=== PATIENT | female | born 1995 | race Caucasian/White ===

== ENCOUNTER 2020-02-21 12:44 | Outpatient (CLI) | payer OTHER, SELFPAY ==
[2020-02-21 12:55] LABS: Basophils Absolute Auto 0.03 K/mm3 (0.00-0.10); Basophils Percent Auto 0.6 % (0.0-1.0); Eosinophils Absolute Auto 0.04 K/mm3 (0.02-0.50); Eosinophils Percent Auto 0.7 % (1.0-6.0); Hematocrit 39.9 % (35.0-49.0); Hemoglobin 13.9 g/dL (12.0-15.0); Immature Granulocyte Absolute 0.01 K/mm3 (0.00-0.00); Immature Granulocyte Percent A 0.2 % (0.0-0.0); Lymphocytes Absolute Auto 1.71 K/mm3 (1.10-4.50); Mean Corpuscular HGB Conc 34.8 g/dL (32.0-36.0); Mean Corpuscular Volume 83.1 fL (78.0-102.0); Mean Platelet Volume 11.1 fl (9.2-11.8); Monocytes Absolute Auto 0.46 K/mm3 (0.10-0.90); Monocytes Percent Auto 8.6 % (2.0-11.0); Neutrophils Absolute Auto 3.1 K/mm3 (1.7-7.2); Neutrophils Percent Auto 57.9 % (50.0-70.0); Platelet Count Result 210 K/mm3 (150-420); Red Cell Distribution Width 13.1 % (11.6-14.4); White Blood Count 5.3 K/mm3 (4.8-10.8)
[2020-02-21 13:29] LABS: Alanine Aminotransferase 19 U/L (14-59); Albumin Level 4.1 g/dL (3.4-5.0); Alkaline Phosphatase 87 U/L (46-116); Anion Gap 9 mmol/L (8-16); Aspartate Amino Transferase 18 U/L (15-37); Bilirubin,Total 0.5 mg/dL (0.00-1.00); Blood Urea Nitrogen 4 mg/dL (7-18); Calcium 9.3 mg/dL (8.5-10.1); Carbon Dioxide 32 mmol/L (21-32); Chloride 99 mmol/L (98-108); Estimated Glomerular Filt Rate > 60; Glucose 89 mg/dL (70-99); Osmolality Calculated 285 mOsm/kg (285-295); Potassium 3.1 mmol/L (3.5-5.1); Sodium 140 mmol/L (136-145); Total Protein 7.3 g/dL (6.4-8.2)
== END 2020-02-21 12:45 | disposition home or self-care (01) ==
LOC: CHSLAB 12:46
PROVIDERS: PCP Nurse Practitioner Family; Visit Provider Nurse Practitioner Family
DX: R59.0 Localized enlarged lymph nodes (principal)
CPT/HCPCS: 36415; 80053; 85025

== ENCOUNTER 2020-11-29 12:33 | Outpatient (CLI) | payer OTHER, SELFPAY ==
--- NOTE | ~2020-11-29 | US_ITS ---
EXAMINATION: US OB <= 14 weeks fetus DATE: 11/29/2020 13:13 INDICATION: First trimester dating and viability assessment TECHNIQUE: Real-time pelvic transabdominal and transvaginal ultrasound was performed. COMPARISON: None. FINDINGS: The uterus measures 12.1 x 6.9 x 8.1 cm. There is an intrauterine gestational sac. h eart motion is identified measuring 165 beats per minute (bpm) by M-mode Doppler. The crown rum p length measures 5.2 cm , which correlates with an estimated gestational age of 11 weeks and 6 day(s ) (+/-) 7 day(s). The ovaries are not visualized however no adnexal abnormality is seen. There is no free fluid in the pelvis. IMPRESSION: 1. Live intrauterine with an estimated gestational age of 11 weeks and 6 day(s) (+/-) 7 day (s) and an estimated delivery date of 06/14/2021. Reviewed, dictated and finalized at location A. IMPRESSION: 1. Live intrauterine with an estimated gestational age of 11 weeks an d 6 day(s) (+/-) 7 day(s) and an estimated delivery date of 06/14/2021.
== END 2020-11-29 12:34 | disposition home or self-care (01) ==
PROVIDERS: PCP Nurse Practitioner Family; Visit Provider Student in an Organized Health Care Education/Training Program
DX: Z34.91 Encounter for supervision of normal pregnancy, unspecified, first trimester (principal); Z3A.11 11 weeks gestation of pregnancy
CPT/HCPCS: 76801

== ENCOUNTER 2020-11-30 12:09 | Outpatient (CLI) | payer OTHER, SELFPAY ==
[2020-11-30 12:41] LABS: Basophils Percent Auto 0.3 % (0.2-1.2); Eosinophils Percent Auto 0.2 % (0-4.4); Hematocrit 37.3 % (37.0-47.0); Hemoglobin 12.7 g/dL (12.0-15.0); Immature Granulocyte Absolute 0.04 K/mm3 (0.00-0.031); Immature Granulocyte Percent A 0.4 % (0-0.5); Lymphocytes Absolute Auto 1.75 K/mm3 (0.9-3.2); Lymphocytes Percent Auto 15.3 % (18.3-44.2); Mean Corpuscular Hemoglobin 29.6 pg (26-34); Mean Corpuscular Volume 86.9 fl (80-100); Mean Platelet Volume 10.6 fl (7.4-10.4); Monocytes Absolute Auto 0.7 K/mm3 (0.1-0.6); Monocytes Percent Auto 6.1 % (2.6-8.5); Neutrophils Absolute Auto 8.9 K/mm3 (1.3-6.7); Neutrophils Percent Auto 77.7 % (45.5-73.1); Platelet Count Result 206 k/mm3 (150-375); Red Blood Count 4.29 M/mm3 (4.2-5.4); Red Cell Distribution Width 13.2 % (11.5-14.5); White Blood Count 11.4 K/mm3 (4.5-10.0)
[2020-11-30 12:44] LABS: Add Urine Microscopic? NO; Appearance Urine Clear (Clear); Bilirubin Urine Negative (Negative); Blood Urine Negative (Negative); Color Urine Yellow (Yellow); Glucose Urine UA Negative (Negative); Ketones Urine Negative (Negative); Leukocyte Esterase Ur Negative LEU/UL (NEGATIVE); Nitrate Urine Negative (Negative); Protein Urine Negative (Negative); Urobilinogen Urine Negative mg/dL (<2.0)
[2020-11-30 13:32] LABS: HIV 1/2 Ab P24 Ag Result Negative (Negative)
[2020-11-30 14:03] LABS: Vitamin D 25 Hydroxy 28.1 ng/mL
[2020-11-30 14:29] LABS: Hepatitis B Surface Antigen Negative (Negative); Rubella IgG Antibody 9.5 IU/ML
[2020-11-30 14:34] LABS: Hepatitis C Virus Antibody Negative (Negative)
[2020-12-03 08:05] LABS: Rapid Plasma Reagin Non-Reactive (NonReactive)
[2020-12-04 11:01] LABS: Varicella IgG Antibody >4000.00 Index (>=165.00)
[2020-12-06 15:26] LABS: Hematocrit 37.8 % (35.0-45.0); Hemoglobin 12.6 g/dL (11.7-15.5); MCH 30.5 pg (27.0-33.0); MCV 91.4 fL (80.0-100.0); RDW 14.9 % (11.0-15.0); Red Blood Cell Count 4.13 Mill/uL (3.80-5.10)
== END 2020-11-30 12:10 | disposition home or self-care (01) ==
LOC: ANHLAB 12:12
PROVIDERS: PCP Nurse Practitioner Family; Visit Provider Student in an Organized Health Care Education/Training Program
DX: Z34.92 Encounter for supervision of normal pregnancy, unspecified, second trimester (principal); Z3A.15 15 weeks gestation of pregnancy
CPT/HCPCS: 36415; 81003; 82306; 83021; 84443; 85025; 86592; 86703; 86762; 86787; 86803; 86850; 86900; 86901; 87086; 87088; 87340; G0432

== ENCOUNTER 2020-12-18 15:32 | Emergency (ER) | payer OTHER, SELFPAY ==
[2020-12-18 15:50] VITALS: BP 119/81; PULSE 91; RESP 15; TEMP 36.7; O2SAT 100
[2020-12-18 16:22] LABS: Add Urine Microscopic? NO; Appearance Urine Clear (Clear); Basophils Absolute Auto 0.04 K/mm3 (0.00-0.10); Basophils Percent Auto 0.4 % (0.0-1.0); Bilirubin Urine Negative (Negative); Blood Urine Negative (Negative); Color Urine Light Yellow (Yellow); Eosinophils Absolute Auto 0.06 K/mm3 (0.02-0.50); Eosinophils Percent Auto 0.6 % (1.0-6.0); Glucose Urine UA Negative (Negative); Hemoglobin 11.6 g/dL (12.0-15.0); Immature Granulocyte Absolute 0.04 K/mm3 (0.00-0.00); Immature Granulocyte Percent A 0.4 % (0.0-0.0); Ketones Urine Negative (Negative); Leukocyte Esterase Ur Negative (Negative); Lymphocytes Absolute Auto 2.29 K/mm3 (1.10-4.50); Lymphocytes Percent Auto 21.3 % (18.0-42.0); Mean Corpuscular HGB Conc 35.2 g/dL (32.0-36.0); Mean Corpuscular Hemoglobin 30.4 pg (27.0-31.0); Mean Corpuscular Volume 86.4 fL (78.0-102.0); Mean Platelet Volume 10.1 fl (9.2-11.8); Monocytes Percent Auto 8.4 % (2.0-11.0); Neutrophils Absolute Auto 7.4 K/mm3 (1.7-7.2); Neutrophils Percent Auto 68.9 % (50.0-70.0); Nitrate Urine Negative (Negative); Platelet Count Result 215 K/mm3 (150-420); Protein Urine Negative (Negative); Red Blood Count 3.82 M/mm3 (4.20-5.40); Red Cell Distribution Width 13.2 % (11.6-14.4); Urobilinogen Urine 0.2 mg/dL (0.2-1.0); White Blood Count 10.8 K/mm3 (4.8-10.8)
--- NOTE | 2020-12-18 16:46 | PC.NURSE ---
DR SHIRIN GOYAL CALLED FOR CONSULT
[2020-12-18] MEDS: MORPHINE SULFATE (*CRX) 4 MG/ML INJ IM (16:50)
[2020-12-18 17:01] LABS: Alanine Aminotransferase 18 U/L (14-59); Albumin Level 3.2 g/dL (3.4-5.0); Alkaline Phosphatase 38 U/L (46-116); Anion Gap 11 mmol/L (8-16); Aspartate Amino Transferase 16 U/L (15-37); Bilirubin,Total 0.6 mg/dL (0.00-1.00); Blood Urea Nitrogen 6 mg/dL (7-18); Calcium 8.6 mg/dL (8.5-10.1); Carbon Dioxide 25 mmol/L (21-32); Chloride 104 mmol/L (98-108); Estimated Glomerular Filt Rate > 60; Glucose 78 mg/dL (70-99); Osmolality Calculated 286 mOsm/kg (285-295); Potassium 3.5 mmol/L (3.5-5.1); Sodium 140 mmol/L (136-145); Total Protein 6.8 g/dL (6.4-8.2)
--- NOTE | 2020-12-18 17:34 | PC.NURSE ---
[facility] CALLED BY DIRECTION OF ROVING CHANGER FOR SURGERY TO R/O APPENDICITIS
[2020-12-18 18:57] VITALS: BP 119/85; PULSE 79; O2SAT 98
--- NOTE | 2020-12-18 19:00 | ED.FEMALEGU ---
HPI - Female Genitourinary General Source: patient and family Mode of arrival: ambulatory Limitations: no limitations History of Present Illness MD elicited complaint: pelvic pain and other (sudden RLQ abdominal pain, pt is . no acute uterine contractions or vaginal bleeding) Onset (ago): hour(s) (2) Location of symptoms: pelvis Severity: moderate Severity scale (1-10): 7 Quality of pain: cramping and aching Consistency: progressively worsening Vaginal bleeding: none Exacerbating factors: none Relieving factors: none Associated symptoms: abdominal pain Patient : Yes Related Data : 0 Para: 1 Allergies Allergy/AdvReac Type Severity Reaction Status Date / Time amoxicillin Allergy Intermediate Other Verified 11/30/20 11:27 Review of Systems Review of Systems: All systems reviewed & are unremarkable except as noted in HPI and below PMFSH Past Medical History Medical History Chronic back pain (Unknown) Encounter for supervision of normal , unspecified, unspecified trimester KAJAL (generalized anxiety disorder) Surgical History Surgical History Eustachian tube disorder Hx of colonoscopy 05/2018. Normal Family History Family History Mother Depression Alcoholism Father Alcoholism Grandparent Alcoholism Skin cancer Lung cancer Thyroid disorder Social History Social History Smoking status: Never smoker Tobacco type: e-cigarettes/vaping Additional smoking assessment comments: Patient trying hard to cut back on vaping during . Alcohol intake: current Drinks per week: 2 Substance use: current Substance use type: marijuana Exam Const: General: alert Nutritional Appearance: well nourished Orientation/consciousness: patient oriented x3 Limitations: no limitations HENMT: Head: normal to inspection Ears: external ears normal and TM's normal bilaterally General nose exam: Normal external nose present and Normal nares present Mouth: Yes lip normal and Yes moist mucous membranes Teeth and gingiva: dentition normal Eyes: General: appearance normal, both eyes and all related structures Conjunctivae: conjunctivae normal Pupils: Equal, round and reactive pupils present EOM: EOMs intact bilaterally Neck: Neck: normal visual inspection and no lymphadenopathy Chest: Chest palpation & inspection: normal inspection of the chest Resp: Effort & Inspection: normal respiratory effort Auscultation: clear to auscultation bilaterally Cardio: Rate: regular rate Rhythm: regular rhythm GI: GI Palp: Yes Soft to palpation Percussion: Yes normal to percussion Auscultation: normal bowel sounds Other: mildly tender RLQ abdomen. Gravid uterus approx 12 weeks. no acute uterine contractions. : General: Yes no CVA tenderness Back/Spine/Pelvis: Back: no CVA tenderness Skin: Rashes: no rashes Neuro: General: patient oriented x3, moves all extremities, no focal motor deficits and CN's II-XI intact bilaterally Extrem: General: normal to inspection and no pedal edema Psych: Mental Status: mental status grossly normal Affect: normal affect Attitude: cooperative Thought content: Yes Normal thought content present Course Course Emergency Course: pt was stable in the ED, with less pain. pt will be transferred for surgical review and U/S---presently un-available here. Reevaluation(s) Reevaluation #1: Pt was stable and less painful. VSS. Date: 12/18/20 Time: 16:44 Vital Signs Vital signs: Vital Signs Temperature 36.7 C 12/18/20 15:50 Pulse Rate 91 12/18/20 15:50 Respiratory Rate 15 12/18/20 15:50 Blood Pressure 119/81 12/18/20 15:50 Pulse Oximetry 100 12/18/20 15:50 Temperature 36.7 C 12/18/20 15:50 Pulse Rat
== END 2020-12-18 19:05 | disposition short-term general hospital (02) ==
PROVIDERS: Emergency Provider Emergency Medicine; PCP Nurse Practitioner Family
DX: R10.9 Unspecified abdominal pain (principal); Z33.1 Pregnant state, incidental
CPT/HCPCS: 36415; 80053; 81003; 84702; 85025; 96372; 99283; 99285; J2270

== ENCOUNTER 2020-12-18 21:46 | Observation (INO) | payer OTHER, SELFPAY ==
--- NOTE | ~2020-12-18 | MR_ITS ---
EXAMINATION: MR abdomen wo con DATE: 12/19/2020 12:49 INDICATION: Abdominal pain. TECHNIQUE: Magnetic resonance imaging (MRI) of the abdomen was performed without intravenous contrast . Sequences included coronal T2-weighted FS FSE, coronal and axial FS FIESTA, axial T2-weighted FSE, coronal LAVA-flex, axial STIR FSE, axial DWI, axial dual-echo T1-weighted FSPGR, and axial LAVA. COMPARISON: CT abdomen 03/23/2018, lumbar spine MRI 06/17/17 FINDINGS: The maternal liver, gallbladder, spleen, pancreas, adrenal glands, and left kidney are normal. There is chronic mild hydronephrosis of right kidney upper pole. There are no dilated loops of bowel. The a ppendix is not visualized. The ovaries are normal. There is a in the uterus in vertex prese ntation. The placenta is anterior. There is a 4.1 cm uterine fibroid. There is physiologic fluid in the pelvis. IMPRESSION: 1. Appendix not visualized. 2. 4.1 cm uterine fibroid. 3. Chronic mild hydronephrosis of right kidney upper pole, stable from 06/17/17. Reviewed, dictated and finalized at location B.
--- NOTE | ~2020-12-18 | US_ITS ---
US_ABDRLQ_US 12/19/2020 08:16 Indication: Lower quadrant pain. Evaluate for appendicitis in . Procedure: High-resolution Limited ultrasound of the right lower abdomen Comparison: No prior studies for comparison. Findings: Normal heterogeneous soft tissues in the right lower abdomen without evidence for focal abn ormal mass or fluid collection. The appendix is not visualized. Peristalsis is identified by the sono grapher during the examination in the area of clinical concern. Intrauterine gestation is identified. Impression: 1: Normal limited ultrasound of the right lower abdomen. Appendix not visualized. Reviewed, dictated and finalized at location A. Impression: 1: Normal limited ultrasound of the right lower abdomen. Appendix not visualize d.
[2020-12-18 19:25] VITALS: TEMP 36.9
--- NOTE | 2020-12-18 19:25 | PC.NURSE ---
Pt was sent here from [facility]. Pt seen there today with right lower quadrant abdominal pain R/O appendicitis. Dr. Luna was consulted and accepted pt in transfer. Pt states she has had intermittent pain right lower quadrant since yesterday. Pain is described as sharp, achy and rated as a 6 on pain scale. Denies nausea, vomiting or diarrhea. Pt had labs done at [facility] prior to arrival. Pt states pain become more intense when she went home to feed animals prior to arriving here. Pt has tenderness right lower quadrant of abdomen with palpation. Pain in noted slightly on in right with palpation of left.
--- NOTE | 2020-12-18 20:05 | OBADM ---
This patient, Tamar Greer, admitted to the OB room OB Post [facility] for observation. Patient/family oriented to hospital policies and general routines including ID bracelet, bed and alarms, visiting hours, pain management, procedures, bathroom and other care routines, personal items, smoking policy, room service/diet, and visiting hours. Patient/Family are encouraged to report perceived risks to care and to ask questions if they do not understand what they are told or what they should do.
[2020-12-18 20:27] VITALS: BP 116/81; PULSE 68
[2020-12-18 21:00] VITALS: BMI 15.9
--- NOTE | 2020-12-18 21:10 | PC.NURSE ---
Dr. Luna on unit to see patient and orders received.
--- NOTE | 2020-12-18 21:59 | PM.IMHP ---
H&P: HPI History of Present Illness Date/Time: 12/18/20 20:59 Chief Complaint: Right lower quadrant abdominal pain during Narrative: this patient is a pleasant 25-year-old white female who is and approximately 15 weeks . She states that starting approximately 2 days ago on Thursday she began having some specific right lower quadrant pain that came and went but was occasionally sharp. Yesterday at work and also bothered her and then today at work she was crying several times because of it was sent home from work. Subsequently she presented to the emergency room at [facility] a after having her last meal about 2:00 p.m. today. Because of the right lower quadrant pain they were concerned about possible appendicitis. CBC urinalysis and CMP were fairly unremarkable. However, because patient could not undergo CT scan to rule out appendicitis they wanted to have her followed at a site where her OB was and I was called. Further history is the patient does vape but has been trying to cut back on this. She has never had previous abdominal surgery and at this time is hungry and not nauseated. Review of Systems Constitutional: Constitutional: Reports as per HPI and Denies headache(s) Eyes: Eyes: Denies loss of vision and Denies eye pain ENT: Reports Normal hearing present, Denies change in voice, Denies dizziness and Denies headache(s) Cardiovascular: Cardiovascular: Denies chest pain and Denies dyspnea Respiratory: Respiratory: Denies dyspnea and Denies wheezing Gastrointestinal: Gastrointestinal: Reports abdominal pain ( fluxes and flows with some sharp episodes mainly right lower quadrant.), Reports GI cramping, Denies excessive flatus and Denies nausea Genitourinary: Comments: approximately 15 weeks (had a ultrasound 2 weeks ago showing 13 weeks gestation) no recent vaginal bleeding or other changes. No recent dysuria did complain about a funny feeling in her abdomen each time she urinated over the last several days urinalysis in [facility] earlier today earlier today unremarkable. 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 She has seen a neurosurgeon about in the past. ( on the right) Psychiatric: Psychiatric: Denies memory loss and Denies panic attacks Endocrine: Endocrine: Reports no additional endocrine complaints Hematologic/Lymphatic: Hematologic/Lymphatic: Reports no additional hematologic/lymphatic complaints Allergic/Immunologic: Allergic/Immunologic: Denies wheezing PMFSH Past Medical History Medical History Chronic back pain Encounter for supervision of normal , unspecified, unspecified trimester KAJAL (generalized anxiety disorder) Surgical History Surgical History Eustachian tube disorder Hx of colonoscopy 05/2018. Normal Family History Family History Mother Depression Alcoholism Father Alcoholism Grandparent Alcoholism Skin cancer Lung cancer Thyroid disorder Social History Social History (Updated 12/18/20 @ 22:07 by Sheng Luna MD) Smoking status: Never smoker Tobacco type: e-cigarettes/vaping Additional smoking assessment comments: Patient trying hard to cut back on vaping during . Alcohol intake: current Drinks per week: 2 Substance use: current Substance use type: marijuana Meds Home Medications and Allergies Home Medications Medication Instructions Recorded Confirmed Type vits,calcium no.78-iro
[2020-12-18] MEDS: SODIUM CHLORIDE 0.9% IV 1,000 ML 100 ML IV CONT (22:22)
[2020-12-18 22:28] VITALS: TEMP 36.8
[2020-12-18 22:29] VITALS: BP 112/70; PULSE 63
[2020-12-18 22:31] VITALS: BP 109/68; PULSE 62
[2020-12-18] MEDS: MORPHINE SULFATE (*CRX) 2 MG/ML INJ IV PUSH (22:47)
[2020-12-19 01:51] VITALS: BP 123/67; PULSE 57
[2020-12-19 02:27] VITALS: TEMP 36.9
[2020-12-19 05:10] VITALS: BP 119/58; PULSE 61; TEMP 36.7
[2020-12-19 05:14] LABS: Basophils Absolute Auto 0.1 K/mm3 (0.0-0.1); Basophils Percent Auto 0.4 % (0.2-1.2); Eosinophils Absolute Auto 0.1 K/mm3 (0-0.3); Eosinophils Percent Auto 0.7 % (0-4.4); Hematocrit 33.9 % (37.0-47.0); Hemoglobin 11.7 g/dL (12.0-15.0); Immature Granulocyte Absolute 0.05 K/mm3 (0.00-0.031); Immature Granulocyte Percent A 0.4 % (0-0.5); Lymphocytes Absolute Auto 2.65 K/mm3 (0.9-3.2); Lymphocytes Percent Auto 23.3 % (18.3-44.2); Mean Corpuscular HGB Conc 34.5 g/dl (32-36); Mean Corpuscular Hemoglobin 30.3 pg (26-34); Mean Corpuscular Volume 87.8 fl (80-100); Mean Platelet Volume 10.2 fl (7.4-10.4); Monocytes Absolute Auto 0.9 K/mm3 (0.1-0.6); Monocytes Percent Auto 7.6 % (2.6-8.5); Neutrophils Absolute Auto 7.7 K/mm3 (1.3-6.7); Neutrophils Percent Auto 67.6 % (45.5-73.1); Platelet Count Result 201 k/mm3 (150-375); Red Blood Count 3.86 M/mm3 (4.2-5.4); Red Cell Distribution Width 13.3 % (11.5-14.5); White Blood Count 11.4 K/mm3 (4.5-10.0)
[2020-12-19 05:25] LABS: Magnesium 1.7 mg/dL (1.6-2.3)
[2020-12-19 05:28] LABS: CRP < 0.5 mg/dL (<1.0)
[2020-12-19 07:05] VITALS: RESP 18; TEMP 36.9
--- NOTE | 2020-12-19 07:05 | PC.NURSE ---
Dr Luna here to see patient. Plan of care discussed.
[2020-12-19 07:18] VITALS: BP 106/61; PULSE 57
--- NOTE | 2020-12-19 07:37 | WPDCN ---
Assessment and Plan Assessment and plan (1) Abdominal pain: Code(s): R10.9 - Unspecified abdominal pain Status: Acute (2) Intrauterine : Code(s): Z34.90 - Encounter for supervision of normal , unspecified, unspecified trimester Status: Acute Assessment and Plan: Will get daily doptones. Discussed with patient possible round ligament pain if appendicitis is ruled out. HPI Data of Consult Date/Time: 12/19/20 07:37 Requesting Physician: Sheng Luna MD Primary Care Provider: Hannah Malloy NP Consult Narrative Narrative: Tamar Greer is a 25 year old female Pt at 15 weeks presented to [place] ED with complaints of severe right lower quadrant pain. Doptones obtained in ED. No spotting. Denies nausea or vomiting or decrease appetite. ED physician evaluating patient concerned regarding possible appendicitis. General surgery admitted patient for evaluation for rule out appendicitis. Patients prior ultrasounds did not show any concerning adnexal mass. Patient sees Dr. Li. Will follow patient with Dr. Luna. [facility] Past Medical History Medical History Chronic back pain Encounter for supervision of normal , unspecified, unspecified trimester KAJAL (generalized anxiety disorder) Surgical History Surgical History Eustachian tube disorder Hx of colonoscopy 05/2018. Normal Family History Family History Mother Depression Alcoholism Father Alcoholism Grandparent Alcoholism Skin cancer Lung cancer Thyroid disorder Social History Social History (Updated 12/18/20 @ 22:07 by Sheng Luna MD) Smoking status: Never smoker Tobacco type: e-cigarettes/vaping Additional smoking assessment comments: Patient trying hard to cut back on vaping during . Alcohol intake: current Drinks per week: 2 Substance use: current Substance use type: marijuana Meds Home Medications and Allergies Home Medications Medication Instructions Recorded Confirmed Type vits,calcium no.78-iron 1 tablet PO DAILY #30 tablet 11/02/20 12/18/20 Rx fumarate-folic acid 29 mg-1 mg tablet Allergies Allergy/AdvReac Type Severity Reaction Status Date / Time amoxicillin Allergy Intermediate Other Verified 11/30/20 11:27 Vital Signs Vital Signs - 24 hr 12/18/20 19:25 12/18/20 20:27 12/18/20 22:28 Temperature 98.4 F 98.3 F Pulse Rate 68 Respiratory Rate Blood Pressure 116/81 12/18/20 22:29 12/18/20 22:31 12/19/20 01:51 Temperature Pulse Rate 63 62 57 L Respiratory Rate Blood Pressure 112/70 109/68 123/67 12/19/20 02:27 12/19/20 05:10 12/19/20 07:05 Temperature 98.4 F 98.1 F 98.5 F Pulse Rate 61 Respiratory Rate 18 Blood Pressure 119/58 L 12/19/20 07:18 Temperature Pulse Rate 57 L Respiratory Rate Blood Pressure 106/61 Exam Const: General: no acute distress Eyes: General: appearance normal, both eyes and all related structures Resp: Effort & Inspection: normal respiratory effort GI: Other: moderate tenderness on right, voluntary guarding no rebound Extrem: General: normal to inspection Other: nontender Psych: Appearance: grossly normal Results Labs CBC & Chem 7: 12/19/20 04:57 Labs: Short CBC 12/19/20 Range/Units 04:57 WBC 11.4 H (4.5-10.0) K/mm3 Hgb 11.7 L (12.0-15.0) g/dL Hct 33.9 L (37.0-47.0) % Plt Count 201 (150-375) k/mm3
--- NOTE | 2020-12-19 08:00 | PC.NURSE ---
Patient to US
--- NOTE | 2020-12-19 08:20 | P.PNOB_ITS ---
OB - PN: Subj Subjective Date/time seen: 12/19/20 08:20 She states pain unchanged. Mild nausea. No spotting. OB - PN: Obj Data Labs CBC & Chem 7: 12/19/20 04:57 Labs: Laboratory Results - last 24 hr 12/19/20 12/19/20 12/19/20 04:57 04:57 04:57 WBC 11.4 H RBC 3.86 L Hgb 11.7 L Hct 33.9 L MCV 87.8 MCH 30.3 MCHC 34.5 RDW 13.3 Plt Count 201 MPV 10.2 Immature Gran % (Auto) 0.4 Neut % (Auto) 67.6 Lymph % (Auto) 23.3 [place] % (Auto) 7.6 Eos % (Auto) 0.7 Baso % (Auto) 0.4 Lymph # (Auto) 2.65 [place] # (Auto) 0.9 H Eos # (Auto) 0.1 Baso # (Auto) 0.1 Abs Immat Gran (auto) 0.05 H Absolute Neuts (auto) 7.7 H Absolute Nucleated RBC 0.0 Nucleated RBC % 0.0 Magnesium 1.7 C-Reactive Protein < 0.5 OB - PN A/P Assessment and Plan (1) Abdominal pain: Code(s): R10.9 - Unspecified abdominal pain Status: Acute Assessment and Plan: Rule out appendicitis. Possible etiology round ligament pain if appy ruled out. (2) Intrauterine : Code(s): Z34.90 - Encounter for supervision of normal , unspecified, unspecified trimester Status: Acute Assessment and Plan: Continue daily doptones. Time Spent With Patient Time: Total time spent is greater than 50% in coordination of care (as doc umented) at patient's floor/unit and/or counseling patient: Exam Const: General: no acute distress and uncomfortable Eyes: General: appearance normal, both eyes and all related structures Resp: Effort & Inspection: normal respiratory effort : Other: fundus nontender approx 16 weeks mild voluntary guarding rlq Skin: General skin exam: normal color Extrem: General: normal to inspection Psych: Mental Status: mental status grossly normal
[2020-12-19] MEDS: ONDANSETRON INJ 4 MG/2 ML VIAL IV PUSH (08:51)
[2020-12-19] MEDS: SODIUM CHLORIDE 0.9% IV 1,000 ML 100 ML IV CONT (08:52)
--- NOTE | 2020-12-19 09:46 | PC.NURSE ---
US results reviewed and call placed to Dr Luna at office and message left.
[2020-12-19] MEDS: MORPHINE SULFATE (*CRX) 2 MG/ML INJ IV PUSH (14:24)
[2020-12-19 14:26] VITALS: BP 103/58; PULSE 64
--- NOTE | 2020-12-19 16:36 | PM.OBPNVD ---
OB - PN: Subj Subjective Date/time seen: 12/19/20 16:36 I talked to her regarding MRI results. Discussed findings of fibroid 4cm. It is located posterior uterus. It does not appear to be degenerating. Discussed with her that it can contribute to round ligament pain with the pulling more on that side. This is common in , not harmful to baby. Discussed with her that round ligament pain is common and can be present until mid 20s. I would recommend Tylenol , binder for abdominal support. From the OB perspective she can eat and I would be ok with her being discharged after making sure she is tolerating foods, if OK gen surg. OB - PN: Obj Data Labs CBC & Chem 7: 12/19/20 04:57 Labs: Laboratory Results - last 24 hr 12/19/20 12/19/20 12/19/20 04:57 04:57 04:57 WBC 11.4 H RBC 3.86 L Hgb 11.7 L Hct 33.9 L MCV 87.8 MCH 30.3 MCHC 34.5 RDW 13.3 Plt Count 201 MPV 10.2 Immature Gran % (Auto) 0.4 Neut % (Auto) 67.6 Lymph % (Auto) 23.3 [place] % (Auto) 7.6 Eos % (Auto) 0.7 Baso % (Auto) 0.4 Lymph # (Auto) 2.65 [place] # (Auto) 0.9 H Eos # (Auto) 0.1 Baso # (Auto) 0.1 Abs Immat Gran (auto) 0.05 H Absolute Neuts (auto) 7.7 H Absolute Nucleated RBC 0.0 Nucleated RBC % 0.0 Magnesium 1.7 C-Reactive Protein < 0.5 Imaging Radiologist's impression: Impressions Abdomen Ultrasound 12/19/20 09:21 Impression: 1: Normal limited ultrasound of the right lower abdomen. Appendix not visualized. Abdomen MRI 12/19/20 14:30 IMPRESSION: 1. Appendix not visualized. 2. 4.1 cm uterine fibroid. 3. Chronic mild hydronephrosis of right kidney upper pole, stable from 06/17/17. OB - PN A/P Time Spent With Patient Time: Total time spent is greater than 50% in coordination of care (as documented) at patient's floor/unit and/or counseling patient:
--- NOTE | 2020-12-19 17:33 | PC.NURSE ---
Dr Luna here to see patient. Plan discussed. Will have a soft diet and then patient may dc home.
--- NOTE | 2020-12-25 20:51 | PM.DS ---
DS: Admitting Diagnosis Admitting Diagnosis Abdominal pain DS: Discharge Diagnosis Discharge Diagnosis (1) Abdominal pain: Onset Date: ~12/18/20 Code(s): R10.9 - Unspecified abdominal pain Status: Acute Assessment and Plan: this was the main reason for the patient's observational admission. Concern the ER was for possible appendicitis and . Patient did have slightly elevated white count otherwise did not have a typical signs were appendicitis. She was still hungry. She did not a fever. However, because concerns she was it admitted for observation the day following admission she had both ultrasound which showed no appendix was swollen MR which showed signs of appendicitis. ( uterine fibroids seen posteriorly). (2) Intrauterine : Onset Date: Unknown Code(s): Z34.90 - Encounter for supervision of normal , unspecified, unspecified trimester Status: Acute Assessment and Plan: Approximately 15 weeks . Consultation was obtained Dr. Sevilla for Dr. Li regarding her OB status. (3) Uterine fibroid complicating care, baby not yet delivered in first trimester: Code(s): O34.11 - Maternal care for benign tumor of corpus uteri, first trimester; D25.9 - Leiomyoma of uterus, unspecified Status: Acute (4) KAJAL (generalized anxiety disorder): Code(s): F41.1 - Generalized anxiety disorder Status: Acute DS: Summary Hospital Course Reason for hospitalization: Abdominal pain in Hospital Course: patient was admitted from the [facility] ED after the if physician expressed concern about possible appendicitis. Please see history and physical for further details. Patient was observed overnight. On the morning following and ultrasound was obtained which showed no signs of a swollen appendage in the right lower quadrant IV appendicitis. I discussed with the radiologist another possible test and they confirmed that they were willing to do an MR without contrast for this problem. Subsequently the afternoon this returned also negative other than some finding of a posterior uterine fibroid, possibly increasing likelihood of round ligament pain in . (See Dr. Sevilla's note regarding this). . This is common in , not harmful to baby. Discussed with her that round ligament pain is common and can be present until mid 20s. I would recommend Tylenol , binder for abdominal support. From the OB perspective she can eat and I would be ok with her being discharged after making sure she is tolerating foods, if OK gen surg. Time Spent with Patient Time attestation: Total time spent providing and/or coordinating discharge services: 40 min Exam Const: General: cooperative, no acute distress, well developed, alert and awake Nutritional Appearance: well nourished Orientation/consciousness: patient oriented x3 Limitations: no limitations HENMT: Head: normal to inspection, normocephalic and atraumatic Ears: hearing grossly normal bilaterally General nose exam: Normal external nose present Face and sinus: normal facial exam Mouth: Yes Normal oral and palatal mucosa present, Yes tongue normal and Yes moist mucous membranes Eyes: General: appearance normal, both eyes and all related structures Pupils: Equal, round and reactive pupils present EOM: EOMs intact bilaterally Neck: Neck: normal visual inspection, no lymphadenopathy, trachea midline and supple Lymphatic: no lymphadenopathy noted Chest: Other: Not examined Resp: Effort & Inspection: normal respiratory effort and able to speak in complete sentences Auscultation: clear to auscultation bilaterally Cardio: Jugular venous distension: no JVD Rate: regular rate Rhythm: regular rhythm Heart sounds: no murmurs GI: Inspection: normal to inspection, no scars and other ( some lower abdominal blood bulge consistent with first-trimester ) GI Palp: Yes a
== END 2020-12-19 19:10 | disposition home or self-care (01) ==
PROVIDERS: Admitting Provider Surgery; PCP Nurse Practitioner Family; Visit Provider Surgery
DX: O26.891 Other specified pregnancy related conditions, first trimester (principal); R10.9 Unspecified abdominal pain; O34.11 Maternal care for benign tumor of corpus uteri, first trimester; D25.9 Leiomyoma of uterus, unspecified; O99.891 Other specified diseases and conditions complicating pregnancy; N13.39 Other hydronephrosis; O99.331 Smoking (tobacco) complicating pregnancy, first trimester; F17.290 Nicotine dependence, other tobacco product, uncomplicated; O99.321 Drug use complicating pregnancy, first trimester; F12.90 Cannabis use, unspecified, uncomplicated; Z3A.15 15 weeks gestation of pregnancy
CPT/HCPCS: 36415; 74181; 76705; 83735; 85025; 86140; 96361; 96374; 96375; G0378; G0379; J2270; J2405; J7030

== ENCOUNTER 2021-03-11 12:23 | Outpatient (CLI) | payer OTHER, SELFPAY ==
[2021-03-11 13:53] LABS: Glucose 1 Hour PP 50gm Dose 99 mg/dL (70-130)
[2021-03-11 13:59] LABS: Basophils Absolute Auto 0.05 K/mm3 (0.00-0.10); Basophils Percent Auto 0.5 % (0.0-1.0); Eosinophils Absolute Auto 0.06 K/mm3 (0.02-0.50); Eosinophils Percent Auto 0.5 % (1.0-6.0); Hematocrit 32.4 % (35.0-49.0); Hemoglobin 11.3 g/dL (12.0-15.0); Immature Granulocyte Absolute 0.08 K/mm3 (0.00-0.00); Immature Granulocyte Percent A 0.7 % (0.0-0.0); Lymphocytes Absolute Auto 1.96 K/mm3 (1.10-4.50); Lymphocytes Percent Auto 17.8 % (18.0-42.0); Mean Corpuscular HGB Conc 34.9 g/dL (32.0-36.0); Mean Corpuscular Volume 88.8 fL (78.0-102.0); Mean Platelet Volume 10.3 fl (9.2-11.8); Monocytes Absolute Auto 0.94 K/mm3 (0.10-0.90); Monocytes Percent Auto 8.5 % (2.0-11.0); Neutrophils Absolute Auto 7.9 K/mm3 (1.7-7.2); Platelet Count Result 212 K/mm3 (150-420); Red Blood Count 3.65 M/mm3 (4.20-5.40); Red Cell Distribution Width 12.8 % (11.6-14.4)
== END 2021-03-11 12:24 | disposition home or self-care (01) ==
LOC: CHSLAB 12:26
PROVIDERS: PCP Nurse Practitioner Family; Visit Provider Student in an Organized Health Care Education/Training Program
DX: Z34.02 Encounter for supervision of normal first pregnancy, second trimester (principal)
CPT/HCPCS: 36415; 82947; 85025

== ENCOUNTER 2021-04-18 10:24 | Outpatient (CLI) | payer OTHER, SELFPAY ==
[2021-04-18 10:39] LABS: Basophils Absolute Auto 0.1 K/mm3 (0.0-0.1); Basophils Percent Auto 0.5 % (0.2-1.2); Eosinophils Absolute Auto 0.1 K/mm3 (0-0.3); Eosinophils Percent Auto 0.6 % (0-4.4); Hematocrit 33.5 % (37.0-47.0); Hemoglobin 11.7 g/dL (12.0-15.0); Immature Granulocyte Absolute 0.13 K/mm3 (0.00-0.031); Immature Granulocyte Percent A 1.2 % (0-0.5); Lymphocytes Percent Auto 16.2 % (18.3-44.2); Mean Corpuscular HGB Conc 34.9 g/dl (32-36); Mean Corpuscular Hemoglobin 30.5 pg (26-34); Mean Corpuscular Volume 87.5 fl (80-100); Mean Platelet Volume 10.4 fl (7.4-10.4); Monocytes Absolute Auto 1.3 K/mm3 (0.1-0.6); Monocytes Percent Auto 11.3 % (2.6-8.5); Neutrophils Absolute Auto 7.8 K/mm3 (1.3-6.7); Neutrophils Percent Auto 70.2 % (45.5-73.1); Platelet Count Result 194 k/mm3 (150-375); Red Blood Count 3.83 M/mm3 (4.2-5.4); Red Cell Distribution Width 13.1 % (11.5-14.5); White Blood Count 11.1 K/mm3 (4.5-10.0)
[2021-04-18 11:29] LABS: HIV 1/2 Ab P24 Ag Result Negative (Negative)
[2021-04-18 11:55] LABS: Rapid Plasma Reagin Non-Reactive (NonReactive)
== END 2021-04-18 10:25 | disposition home or self-care (01) ==
PROVIDERS: PCP Nurse Practitioner Family; Visit Provider Student in an Organized Health Care Education/Training Program
DX: Z34.90 Encounter for supervision of normal pregnancy, unspecified, unspecified trimester (principal); Z3A.00 Weeks of gestation of pregnancy not specified
CPT/HCPCS: 36415; 85025; 86592; 86703; G0432

== ENCOUNTER 2021-05-20 15:55 | Inpatient (IN) | payer OTHER, SELFPAY ==
[2021-05-20 17:11] VITALS: BMI 21.1
--- NOTE | 2021-05-20 17:11 | LDADM ---
This patient, Tamar Greer, was admitted to Labor/Delivery/Recovery 109 on 05/20/21 at 15:55. Plans for labor, pain management and were discussed with patient. Patient/family oriented to hospital policies and general routines including ID bracelet, bed and alarms, visiting hours, pain management, procedures, bathroom and other care routines, personal items, smoking policy, room service/diet and guest tray routines, infant security routines, and visiting hours. Patient/Family are encouraged to report perceived risks to care and to ask questions if they do not understand what they are told or what they should do. See OBIX for further documentation.
[2021-05-20 17:19] VITALS: BP 109/73; PULSE 69
[2021-05-20] MEDS: DINOPROSTONE 10 MG VAG INSERT VAGINAL (17:36)
[2021-05-20 17:38] LABS: Basophils Absolute Auto 0.1 K/mm3 (0.0-0.1); Basophils Percent Auto 0.4 % (0.2-1.2); Eosinophils Absolute Auto 0.1 K/mm3 (0-0.3); Eosinophils Percent Auto 0.7 % (0-4.4); Hematocrit 34.8 % (37.0-47.0); Hemoglobin 11.9 g/dL (12.0-15.0); Immature Granulocyte Absolute 0.11 K/mm3 (0.00-0.031); Immature Granulocyte Percent A 0.9 % (0-0.5); Lymphocytes Percent Auto 17.2 % (18.3-44.2); Mean Corpuscular HGB Conc 34.2 g/dl (32-36); Mean Corpuscular Hemoglobin 29.8 pg (26-34); Mean Platelet Volume 11.5 fl (7.4-10.4); Monocytes Absolute Auto 1.2 K/mm3 (0.1-0.6); Monocytes Percent Auto 10.2 % (2.6-8.5); Neutrophils Absolute Auto 8.6 K/mm3 (1.3-6.7); Neutrophils Percent Auto 70.6 % (45.5-73.1); Platelet Count Result 209 k/mm3 (150-375); Red Cell Distribution Width 13.1 % (11.5-14.5); White Blood Count 12.2 K/mm3 (4.5-10.0)
--- NOTE | 2021-05-20 17:43 | WPDANESEPP ---
Anes - Eval Pre Procedure Procedure: labor epidural Date/Time: 05/20/21 17:43 Surgeon: paola Preop Diagnosis: pain during labor Pre Op Diagnosis: IOL Patient Data Age: 25 Gender: F Height: 1.65 m Weight: 57.6 kg Last Vital Signs Pulse 69 05/20/21 17:19 BP 109/73 05/20/21 17:19 Allergies Allergy/AdvReac Type Severity Reaction Status Date / Time benzocaine [From Dermoplast] Allergy Rash Verified 05/17/21 14:33 lanolin [From Dermoplast] Allergy Rash Verified 05/17/21 14:33 Home Medications Medication Instructions Recorded Confirmed Type vits,calcium no.78-iron 1 tablet PO DAILY #30 tablet 11/02/20 05/20/21 Rx fumarate-folic acid 29 mg-1 mg tablet Laboratory Tests 05/20/21 05/20/21 16:52 16:52 WBC 12.2 K/mm3 H K/mm3 (4.5-10.0) RBC 4.00 M/mm3 L M/mm3 (4.2-5.4) Hgb 11.9 g/dL L g/dL (12.0-15.0) Hct 34.8 % L % (37.0-47.0) MCV 87.0 fl fl (80-100) MCH 29.8 pg pg (26-34) MCHC 34.2 g/dl g/dl (32-36) RDW 13.1 % % (11.5-14.5) Plt Count 209 k/mm3 k/mm3 (150-375) MPV 11.5 fl H fl (7.4-10.4) Immature Gran % (Auto) 0.9 % H % (0-0.5) Neut % (Auto) 70.6 % % (45.5-73.1) Lymph % (Auto) 17.2 % L % (18.3-44.2) Oliver % (Auto) 10.2 % H % (2.6-8.5) Eos % (Auto) 0.7 % % (0-4.4) Baso % (Auto) 0.4 % % (0.2-1.2) Lymph # (Auto) 2.10 K/mm3 K/mm3 (0.9-3.2) Oliver # (Auto) 1.2 K/mm3 H K/mm3 (0.1-0.6) Eos # (Auto) 0.1 K/mm3 K/mm3 (0-0.3) Baso # (Auto) 0.1 K/mm3 K/mm3 (0.0-0.1) Abs Immat Gran (auto) 0.11 K/mm3 H K/mm3 (0.00-0.031) Absolute Neuts (auto) 8.6 K/mm3 H K/mm3 (1.3-6.7) Absolute Nucleated RBC 0.0 K/mm3 K/mm3 (0.0-0.012) Nucleated RBC % 0.0 % % (0.0-0.2) RPR Pending Patient hx anesthesia problems: none Family hx anesthesia problems: none Results Review: All pre-operative results and documents have been reviewed as part of the pre-operative evaluation. [facility] Past Medical History Medical History (Updated 05/20/21 @ 17:45 by Imelda Aguilera CRNA) Chronic back pain (Unknown) Encounter for supervision of normal , unspecified, unspecified trimester KAJAL (generalized anxiety disorder) History of uterine fibroid Tarlov cyst Surgical History Surgical History Eustachian tube disorder Hx of colonoscopy 05/2018. Normal Family History Family History Mother Depression Alcoholism Father Alcoholism Grandparent Alcoholism Skin cancer Lung cancer Thyroid disorder Social History Social History Smoking packs per day: 1 Smoking cigarettes per day: 20.0 Years smoked: 2 Smoking pack-years: 2.00 Smoking status: Former smoker Tobacco type: cigarettes Additional smoking assessment comments: Patient trying hard to cut back on vaping during . Alcohol intake: current Drinks per week: 2 Substance use: current Substance use type: marijuana Spiritual care concerns: No Exam Day of Procedure 05/20/21 17:43
[2021-05-20 18:44] VITALS: PULSE 66; O2SAT 95
[2021-05-20 18:48] VITALS: RESP 14; TEMP 36.9
[2021-05-20 20:23] VITALS: RESP 14; TEMP 36.2
[2021-05-20] MEDS: LACTATED RINGERS 1,000 ML 125 ML IV CONT (23:26)
[2021-05-21] VITALS (179 sets, daily range): BP systolic 91–149; BP diastolic 58–104; PULSE 53–165; RESP 16; TEMP 36.7–37.6; O2SAT 96–100
[2021-05-21] MEDS: fentaNYL CITRATE INJ (*CRX) 100 MCG/2 ML VIAL 50 MCG IV PUSH (00:19)
[2021-05-21] MEDS: LACTATED RINGERS 1,000 ML 125 ML IV CONT ×2 (00:53→10:00)
[2021-05-21] MEDS: OXYTOCIN 30 UNITS/NS 500 ML 30 UNITS/500 ML BAG 6 UNITS IV CONT (05:24)
[2021-05-21 07:28] LABS: Rapid Plasma Reagin Non-Reactive (NonReactive)
--- NOTE | 2021-05-21 09:02 | PM.IMHP ---
H&P: HPI History of Present Illness Date/Time: 05/21/21 09:02Patient is a 25-year-old LMP 09/01/2020 currently 37 weeks 3 days gestation with HOSSEIN 06/08/2021. Patient is dated by LMP consistent with ultrasound on 11/29/2020 at 11 weeks gestation. Patient presented to labor and delivery on the evening of 05/20/20 for induction of labor secondary to IUGR. Most recent growth scan on 05/13/20 showed EFW 3%. In general, patient reports feeling well. Reports occasional contractions. Denies vaginal bleeding or leakage of fluid. Reports good movement. Chief Complaint: IUP at 37w3d IUGR Review of Systems Review of Systems: All systems reviewed & are unremarkable except as noted in HPI and below Constitutional: Constitutional: Reports as per HPI, Reports no additional constitutional complaints, Denies chills, Denies fever(s), Denies headache(s) and Denies night sweats Eyes: Eyes: Reports as per HPI and Reports no additional eye complaints ENT: Reports system reviewed and no additional complaints, except as documented, Reports as per HPI, Reports Normal hearing present and Denies headache(s) Cardiovascular: Cardiovascular: Reports as per HPI, Reports no additional cardiovascular complaints, Denies chest pain and Denies dyspnea Respiratory: Respiratory: Reports as per HPI, Reports no additional respiratory complaints, Denies cough and Denies dyspnea Gastrointestinal: Gastrointestinal: Reports as per HPI, Reports no additional gastrointestinal complaints, Denies abdominal pain, Denies change in bowel habits, Denies change in stool character, Denies nausea and Denies vomiting Genitourinary: Genitourinary: Reports no additional female genitourinary complaints, Reports as per HPI, Denies abnormal vaginal bleeding, Denies genital lesions, Denies hot flashes, Denies dyspareunia, Denies pelvic pain, Denies sexual dysfunction, Denies urinary incontinence, Denies vaginal discharge, Denies vaginal dryness and Denies vaginal odor Musculoskeletal: Musculoskeletal: Reports no additional musculoskeletal complaints and Reports as per HPI Integumentary/Breasts: Skin/Breast: Reports system reviewed and no additional complaints, except as docu, Reports as per HPI, Denies breast pain and Denies nipple discharge Neurologic: Reports system reviewed and no additional complaints, except as documented, Reports as per HPI, Reports Normal hearing present and Denies headache(s) Psychiatric: Psychiatric: Reports no additional psychiatric complaints, Reports as per HPI, Denies anxiety and Denies depression Endocrine: Endocrine: Reports no additional endocrine complaints and Reports as per HPI Hematologic/Lymphatic: Hematologic/Lymphatic: Reports no additional hematologic/lymphatic complaints and Reports as per HPI Allergic/Immunologic: Allergic/Immunologic: Reports no additional allergic/immunologic complaints and Reports as per HPI PMFSH Past Medical History Medical History Chronic back pain (Unknown) Encounter for supervision of normal , unspecified, unspecified trimester KAJAL (generalized anxiety disorder) History of uterine fibroid Tarlov cyst Surgical History Surgical History Eustachian tube disorder Hx of colonoscopy 05/2018. Normal Family History Family History Mother Depression Alcoholism Father Alcoholism Grandparent Alcoholism Skin cancer Lung cancer Thyroid disorder Social History Social History Smoking packs per day: 1 Smoking cigarettes per day: 20.0 Years smoked: 2 Smoking pack-years: 2.00 Smoking status: Former smoker Tobacco type: cigarettes Additional smoking assessment comments: Patient trying hard to cut back on vaping during . Alcohol intake: current Drinks per week: 2 Substance use:
--- NOTE | 2021-05-21 10:12 | WPDHPUPDATE1 ---
History and Physical Update Update Date/Time: 05/21/21 10:12 History and Physical has been reviewed, including an updated exam of the patient. There are NO changes in the patient's condition. Risks, benefits, and alternatives have been discussed and questions answered. Patient agrees to proceed with procedure.
[2021-05-21 10:49] LABS: Barbiturate Screen Urine Negative (Negative); Benzodiazepines Screen Urine Negative (Negative)
[2021-05-21 10:58] LABS: Amphetamine Screen Urine Negative (Negative); Cannabinoid Screen Urine Negative (Negative); Cocaine Screen Urine Negative (Negative); Methadone Screen Urine Negative (Negative); Opiate Screen Urine Negative (Negative); Phencyclidine Screen Urine Negative (Negative)
--- NOTE | 2021-05-21 12:12 | PM.OBPRVD ---
OB - Delivery Note Procedure Delivery date: 05/21/21 Procedure: The patient is a 25-year-old now who presented to labor and delivery on the evening of 05/20/2021 at 37 weeks 2 days gestation for scheduled induction of labor secondary to intrauterine growth restriction. Patient was admitted to labor and delivery. Induction of labor was started with Cervidil. Cervidil was placed and remained in place for approx. 7-8 hours after which time it was removed. Patient was approximately 3 cm dilated. Patient became uncomfortable and requested epidural for pain management which was placed without difficulty. Patient was started on Pitocin for labor augmentation. Artificial rupture membranes was performed at 8:05 a.m. Bloody amniotic fluid was noted. Pitocin was continuously titrated and patient made progressive cervical change. She was noted to be fully dilated at 10:37 a.m. Patient was encouraged to push and found to be pushing well. Patient was prepped and draped for delivery. At 11:15 a.m., patient delivered head atraumatically and without difficulty in JERICA presentation. Occiput restituted to maternal right side. A nuchal cord x1 was noted, however, unable to be reduced. With subsequent push, the infant's neck, shoulders, and rest of body were delivered without difficulty. Nuchal cord was reduced. Infant was crying spontaneously. 's nose and mouth were suctioned with bulb suction. was placed on maternal abdomen where care was assumed by awaiting nursing staff. Delayed cord clamping was performed for approximately 60 seconds. The cord was clamped and cut. A segment of cord was collected for cord gases. Cord blood was collected. The placenta was delivered spontaneously and intact. Uterine fundus was noted to be firm with bimanual massage. On inspection, a right periurethral laceration was noted. This laceration was repaired with 3-0 Vicryl in the usual fashion. Excellent hemostasis was noted. Estimated blood loss for entire delivery was 150 cc. The infant was a live-born female , apgars 8 and 8, weighing 5 lb 9 oz. events: Labor Induction Induction method: per cervidil protocol Delivery augmentation: rupture of membranes and pitocin Delivery monitor: external FHT and external uterine Route of delivery: Laceration Description: Periurethral (right) Delivery repair: vicryl (3-0) Specimen: Yes (placenta and cord, cord blood, and cord gases) Quantitative Blood Loss (ml): 150 Anesthesia type: Epidural Disposition: floor Complications: No immediate complications Baby Date of : 05/21/21 Time of : 11:15 Weeks of gestation at delivery: 37 (37.3) gender: Female Weight (pounds): 5 Weight (ounces): 9 presentation: vertex position: Right Occiput Anterior Placenta delivery description: Spontaneous cord vessel description: 3 Vessels, Nuchal Cord (x1) and Delayed Cord Clamping (x60 seconds) score one minute: 8 score five minutes: 8
[2021-05-21] MEDS: IBUPROFEN 600 MG TABLET PO (14:04)
--- NOTE | 2021-05-21 15:40 | OBPPTRN ---
1448 Patient transferred to post room #282 via W/C. Support person present. Oriented to unit, room, information board, rooming in, admission packet and security measures. Patient verbalizes understanding.
--- NOTE | 2021-05-21 17:59 | PC.NURSE ---
Addendum entered by Radha Adrian RN 05/21/21 18:07: 1800 returned to room 282 per W/C. Original Note: 1715 Went down to visit in first floor nursery per W/C.
[2021-05-21] MEDS: ACETAMINOPHEN 325 MG TABLET 650 MG PO (18:50)
[2021-05-22] MEDS: IBUPROFEN 600 MG TABLET PO ×4 (00:39→20:57)
[2021-05-22] MEDS: TETANUS,DIPHTHERIA,AC PERTUSSIS ADULT (0.5 ML) BOOSTRIX IM (05:07)
[2021-05-22 05:42] LABS: Hematocrit 32.7 % (37.0-47.0); Hemoglobin 11.1 g/dL (12.0-15.0)
[2021-05-22 07:23] VITALS: BP 111/67; PULSE 72; RESP 16; TEMP 36.8; O2SAT 98
[2021-05-22] MEDS: MULTIVIT/MIN/PREN/FOL AC/IRON TABLET 1 TAB PO (07:23)
[2021-05-22] MEDS: DOCUSATE SODIUM 100 MG CAPSULE PO (07:23)
--- NOTE | 2021-05-22 09:52 | P.PNOB_ITS ---
OB - PN: Subj Subjective Date/time seen: 05/22/21 09:52 Patient doing well. Pain reasonably controlled with medication. Reports experiencing more pain after returning from visiting daughter in [place]. Likely behind on pain medication dosing. Minimal-moderate lochia. Ambulating without difficulty. Voiding well. OB - PN: Obj Data Labs CBC & Chem 7: 05/22/21 05:04 Labs: Laboratory Results - last 24 hr 05/21/21 05/22/21 10:10 05:04 Hgb 11.1 L Hct 32.7 L Urine Opiates Screen Negative Urine Methadone Screen Negative Ur Barbiturates Screen Negative Ur Phencyclidine Scrn Negative Ur Amphetamine Screen Negative U Benzodiazepines Scrn Negative Urine Cocaine Screen Negative U Cannabinoids Screen Negative OB - PN A/P Assessment and Plan (1) Normal spontaneous vaginal delivery: Code(s): O80 - Encounter for full-term uncomplicated delivery Status: Acute Assessment and Plan: PPD#1 doing well continue routine care anticipate dc home this afternoon or tomorrow Time Spent With Patient Time: Total time spent is greater than 50% in coordination of care (as documented) at patient's floor/unit and/or counseling patient: Exam Const: General: cooperative, healthy appearing, comfortable and no acute distress GI: Inspection: non-distended GI Palp: Yes Soft to palpation and No Tendern ess to palpation present (GI) Other: fundus firm below umbilicus Extrem: Right lower extremity: no edema Left lower extremity: no edema Other: no calf tenderness Psych: Appearance: grossly normal Mental Status: mental status grossly normal
[2021-05-22] MEDS: ACETAMINOPHEN 325 MG TABLET 650 MG PO (11:42)
--- NOTE | 2021-05-22 12:10 | PC.NURSE ---
0709 - Mom is sleepy and will call out when she is awake and ready initiate pumping. Primary RN is at bedside.
--- NOTE | 2021-05-22 12:39 | WPDANLDPN2 ---
Anes-Prog Note L&D Date/Time: 05/22/21 12:39 Comfortable throughout: labor and delivery Neuraxial method: epidural Epidural/Spinal procedure site: clean & non-tender Neuro status: Neuro function grossly intact. Cardiovascular status: normal Respiratory status: normal Airway patency: baseline Mental status: baseline Post-Op hydration status: normal Vital Signs: Last Vital Signs Temp 98.3 F 05/22/21 07:23 Pulse 72 05/22/21 07:23 Resp 16 05/22/21 07:23 BP 111/67 05/22/21 07:23 Pulse Ox 98 05/22/21 07:23 Pain score (VAS): 05/13 Post-procedural complaints: none Patient feedback: Patient satisfied with anesthetic care.
--- NOTE | 2021-05-22 15:33 | PC.NURSE ---
1330 - Mom desires to initiate pumping for milk supply before she goes to visit . Breast pump provided due to transferred to [facility]. Instructions given on breast pump care and usage, pumping schedule, nipple care, and collection and storage of breast milk. Encouraged nipple stroking, gentle nipple stretching, breast massage and education using handout regarding hand expression to stimulate supply. Pumping log provided and reviewed. Assessed patient for correct flange size, placement and draw. Patient verbalizes and demonstrates understanding of instructions. Reported to primary RN.
--- NOTE | 2021-05-22 18:39 | PC.NURSE ---
1500 Went on a pass to visit @ [facility]. Form signed and on chart.
--- NOTE | 2021-05-22 20:45 | PC.NURSE ---
Patient back from her pass to visit infant at [facility].
[2021-05-22 20:55] VITALS: BP 137/82; PULSE 76; RESP 16; TEMP 37; O2SAT 100
[2021-05-23 08:00] VITALS: PULSE 70; RESP 16; O2SAT 99
[2021-05-23 08:10] VITALS: BP 137/83; PULSE 70; RESP 16; TEMP 36.7; O2SAT 99
--- NOTE | 2021-05-23 09:39 | PC.NURSE ---
0967-Consulted with Dr. Li; not necessary for patient to come to a follow-up appointment for herself since baby was transferred to [facility]. RN instructed patient to contact Dr. Li's office for any problems or concerns.
--- NOTE | 2021-05-23 09:42 | PM.OBPNVD ---
OB - PN: Subj Subjective Date/time seen: 05/23/21 09:42 Patient doing well. Pain reasonably controlled medication. Minimal to moderate lochia. Voiding well. Ambulating well. OB - PN: Obj Data Labs CBC & Chem 7: 05/22/21 05:04 OB - PN A/P Assessment and Plan (1) Normal spontaneous vaginal delivery: Code(s): O80 - Encounter for full-term uncomplicated delivery Status: Acute Assessment and Plan: PPD#2 doing well dc home in stable condition emergency precautions reviewed f/u in office in 4-6 weeks Time Spent With Patient Time: Total time spent is greater than 50% in coordination of care (as documented) at patient's floor/unit and/or counseling patient: Exam Const: General: cooperative, healthy appearing, comfortable and no acute distress GI: Inspection: non-distended GI Palp: No Soft to palpation and No Tenderness to palpation present (GI) Other: fundus firm below umbilicus Extrem: Right lower extremity: no edema Left lower extremity: no edema Other: no calf tenderness
[2021-05-23] MEDS: DOCUSATE SODIUM 100 MG CAPSULE PO (09:52)
[2021-05-23] MEDS: MULTIVIT/MIN/PREN/FOL AC/IRON TABLET 1 TAB PO (09:52)
--- NOTE | 2021-05-23 10:06 | PM.OBDSVD ---
DS: Admitting Diagnosis Discharge Date 05/23/21 Admitting Diagnosis IUGR OB - DS: Summary OB Procedures : None OB Procedures Intrapartum: Spontaneous Vag Delivery OB Procedures: : None Time Spent with Patient Time attestation: Total time spent providing and/or coordinating discharge services: Discharge Plan Discharge Attending physician on discharge: Alannah Li Discharging Clinician: Alannah Li Anticipated Discharge Date/Time: 05/23/21 10:06 Patient Disposition: Home, Self-Care Activity: as tolerated and pelvic rest Diet: regular Discharge Instructions: Call office ([phone]) to schedule a visit in 4-6 weeks. You may take Ibuprofen 600mg every 6 hours as needed for pain. Pain medication may make you constipated. It may be helpful to take an [id number] stool softener, such as Colace and/or Senokot, along with the pain medication to help lessen constipation. Call office or go to ED for pain not controlled with medication, headache, chest pain, shortness of breath, fever, chills, persistent nausea or vomiting, severe abdominal pain, heavy vaginal bleeding >2 pads/hour, foul vaginal discharge or odor, or problems with your breasts. Patient Instructions: Antibiotic Form Stand Alone Forms: General Discharge Information Follow-up/Referrals: Alannah Li MD [Physician] - Discharge Medications: Continued Prenatabs FA 29-1 mg tablet 1 tablet PO DAILY Qty: 30 RF: 8 Date of admission: 05/20/21 15:55 Primary Care Provider: Hannah Malloy Admitting Provider: Alannah Li Attending physician on admission: Alannah Li Condition: Stable
--- NOTE | 2021-05-23 10:07 | PC.NURSE ---
0745 - [facility] is in the restroom.
[2021-05-23] MEDS: MEASLES,MUMPS,RUBELLA VACCINE 0.5 ML VIAL SUB-Q (10:39)
--- NOTE | 2021-05-23 12:46 | PC.NURSE ---
Patient viewed the discharge video Mother & Baby Care, The First Two Weeks . Patient was given the opportunity and encouraged to ask questions. Patient verbalized understanding of information shared and has been given the mother/baby guide for home reference.
== END 2021-05-23 13:11 | disposition home or self-care (01) | DRG 560 ==
LOC: ANHLDR 16:02 → ANHOB2 05-21 19:01
PROVIDERS: Admitting Provider Student in an Organized Health Care Education/Training Program; PCP Nurse Practitioner Family; Visit Provider Student in an Organized Health Care Education/Training Program
DX: O36.5930 Maternal care for other known or suspected poor fetal growth, third trimester, not applicable or unspecified (principal); O69.81X0 Labor and delivery complicated by cord around neck, without compression, not applicable or unspecified; O99.334 Smoking (tobacco) complicating childbirth; F17.210 Nicotine dependence, cigarettes, uncomplicated; O71.82 Other specified trauma to perineum and vulva; Z23 Encounter for immunization; Z3A.37 37 weeks gestation of pregnancy; Z37.0 Single live birth
CPT/HCPCS: 36415; 80307; 85014; 85018; 85025; 86592; 86850; 86900; 86901; 90471; 90653; 90710; 90715; A9270; G0008; J2590; J2795; J3010; J7120